=== PATIENT | male | born 1945 | race Caucasian/White ===

== ENCOUNTER 2018-08-07 06:56 | Inpatient (IN) | payer OTHER ==
[2018-07-23 12:05] VITALS: BMI 31.6
[2018-08-07] MEDS ORDERED: GABAPENTIN 300 MG CAPSULE (FP) PO ONE (07:22)
[2018-08-07] MEDS ORDERED: CEFAZOLIN 2 GM in DEXTROSE 5%-WATER - 50 ML IVPB ONE (07:22)
[2018-08-07] MEDS ORDERED: oxyCODONE HCL 10 MG SUSTAINED ACTING TABLET PO ONE (07:22)
[2018-08-07] MEDS ORDERED: TRANEXAMIC ACID 1000 MG/10 ML VIAL IVPUSH ONE (07:22)
[2018-08-07] MEDS ORDERED: CELECOXIB 200 MG CAPSULE PO ONE (07:22)
[2018-08-07] MEDS ORDERED: ceFAZolin SODIUM 1 GM VIAL ONE ×2 (07:28→09:51)
[2018-08-07] MEDS ORDERED: VANCOMYCIN 1,000 MG VIAL (RESTRICTED TO ID ONLY) ONE (07:28)
--- NOTE | 2018-08-07 07:53 | HP ---
Satellite [facility] [place] - Chief Complaint Chief Complaint: right knee pain - Past Medical History Allergies/Adverse Reactions: Allergies Allergy/AdvReac Type Severity Reaction Status Date / Time No Known Allergies Allergy Verified 07/23/18 11:57 - Current Medications Current Medications: Home Medications Medication Instructions Recorded Atorvastatin Ca [Lipitor] 40 mg PO DAILY 07/23/18 Lisinopril/Hydrochlorothiazide 1 each PO DAILY 07/23/18 [Lisinopril-Hctz 20-25 mg Tab] Satellite Physical Exam - Physical Examination Vital Signs: Vital Signs Period Temp Pulse Resp BP Sys/Martinez Pulse Ox Last 24 Hr 98.5 F 86 18 167/91 General Appearance: Well Nourished, Well Developed, Alert & Oriented x3 ENT: Clear Lung: Normal air movement Heart: Regular rate & rhythm Extremities: Other (right knee- + swelling, + ttp, decr rom, nvi xrays show grade 4 tricompartmental djd) Neurological: Intact, Alert, Oriented Satellite Impression/Plan - Impression/Plan Impression: right knee djd Operative Procedure: right aviva tkr Date to be Performed: 08/07/18
[2018-08-07] MEDS ORDERED: BUPIVACAINE LIPOSOME/PF (EXPAREL) 266 MG/20 ML VIAL ONE (08:44)
[2018-08-07] MEDS ORDERED: MIDAZOLAM HCL 2 MG/2 ML SINGLE DOSE VIAL ONE ×3 (08:44→10:17)
[2018-08-07] MEDS ORDERED: PROPOFOL 20 ML ONE (09:49)
[2018-08-07] MEDS ORDERED: MAG HYDROX/AL HYDROX/SIMETH 30 ML UNIT-DOSE CUP PO PRN (09:56)
[2018-08-07] MEDS ORDERED: MAGNESIUM HYDROX 2400MG/30ML ORAL SUSPENSION 30 ML CUP PO PRN (09:56)
[2018-08-07] MEDS ORDERED: ONDANSETRON 4 MG/2 ML VIAL IVPUSH PRN ×2 (09:56→11:39)
[2018-08-07] MEDS ORDERED: PATIENT'S OWN MEDICATION (NON-FORMULARY) (Lisinopril/Hydrochlorothiazide [Lisinopril-Hctz PO SCH (10:00)
[2018-08-07] MEDS ORDERED: LACTATED RINGERS SOLUTION 1,000 ML IV SCH ×2 (10:00→11:45)
[2018-08-07] MEDS ORDERED: TRANEXAMIC ACID 1000 MG/10 ML VIAL ONE ×2 (10:04→11:13)
[2018-08-07] MEDS ORDERED: DEXAMETHASONE SOD PHOSPHATE 4 MG/1 ML VIAL ONE (10:04)
[2018-08-07] MEDS ORDERED: VANCOMYCIN 1,000 MG VIAL (RESTRICTED TO ID ONLY) IVPB ONE (10:50)
--- NOTE | 2018-08-07 11:24 | OP ---
Operative Note - Note: Operative Date: 08/07/18 (hany) Pre-Operative Diagnosis: right knee djd Operation: right aviva tkr Post-Operative Diagnosis: Same as Pre-op Surgeon: Eduard Silva Oil Developer: Diony Gibbs Anesthesiologist/V BELT INSPECTOR: Geoffrey Snider Anesthesia: Spinal, Local Specimens Removed: bone fragments Estimated Blood Loss (mls): 200 Operative Report Dictated: Yes
[2018-08-07] MEDS ORDERED: ACETAMINOPHEN 1000 MG/100 ML VIAL (NON FORMULARY) IVPB ONE ×2 (11:39→12:10)
[2018-08-07] MEDS: ATORVASTATIN CA 40 MG TABLET (FP) PO SCH (13:57)
[2018-08-07] MEDS: SENNOSIDES/DOCUSATE COMBO (SENNA PLUS) TABLET (UD) PO SCH ×2 (13:57→22:27)
[2018-08-07] MEDS: MULTIVITAMINS (DAILY MVI) TABLET (FP) PO SCH (13:57)
[2018-08-07] MEDS: PANTOPRAZOLE 40 MG TABLET (FP) PO SCH (13:57)
[2018-08-07] MEDS: CEFAZOLIN 2 GM/D5W 2 GM/50 ML ML IVPB SCH (17:52)
[2018-08-07] MEDS: ACETAMINOPHEN 325 MG TABLET (FP) PO SCH (17:52)
--- NOTE | 2018-08-07 20:15 | OP ---
DATE OF OPERATION: 08/07/2018 PREOPERATIVE DIAGNOSIS: Degenerative joint disease, right knee. POSTOPERATIVE DIAGNOSIS: Degenerative joint disease, right knee. PROCEDURE: Right total knee replacement with robotic-assisted navigation (MAKOplasty). SURGICAL ATTENDING: Eduard Silva MD STATISTICAL PROGRAMMER ANALYST: NOEMI English ANESTHESIA: Regional and spinal. CLOSURE: A Press-Fit Triathlon knee system with a 4 femur, 5 tibia, 9 polyethylene, a 38 patella; No. 1 Vicryl, fascia; 0 and 2-0 for subcutaneous; and 3-0 Monocryl subcuticular with skin glue for skin; 4-0 undyed Vicryl for pin sites. ESTIMATED BLOOD LOSS: Less than 100 mL. COMPLICATIONS: None. CONDITION: To recovery room in stable condition. DESCRIPTION OF OPERATIVE PROCEDURE: Patient was taken to the operating room on August 07, 2018. Regional and spinal anesthesia was administered by the anesthesiologist. IV Kefzol was administered prophylactically prior to the case as well as TXA. The right lower extremity was prepped and draped in the usual sterile fashion. The midline 10- to 12-cm longitudinal incision was made. Hemostasis was achieved with Bovie cautery. Sharp dissection was carried down to the extensor mechanism which was perform the procedure. Medial parapatellar arthrotomy was then performed, leaving a cuff of tissue for later closure. The patella was inverted and the knee was flexed up. The fat pad was excised. Subperiosteal dissection was done on the anteromedial proximal tibia until the knee was able to be brought forward. This was facilitated by taking the ACL, PCL and medial and lateral menisci. Checkpoints were placed in both the femur and in the tibia. Two parallel threaded pins were drilled superior to the knee joint through the already made incision from anterior to posterior just going through the anterior cortex but just engaging but not going through the posterior cortex. Two threaded pins were drilled through 2 small stab incisions in parallel fashion 1 handbreadth below the tibial tubercle through the anterior cortex of the tibia and engaging but not going through the posterior cortex. Both sets of pins were attached to navigation arrays for the YASMINE system. The knee was then registered with the navigation system with center of rotation of the hip, medial and lateral malleoli and multiple sites both on the tibia and on the femur. Confirmation of excellent registration was confirmed by "popping the bubbles." At this time, the knee was thoroughly inspected to remove all osteophytes around the knee. The knee was then tensioned in varus/valgus at both full extension and at 90 degrees of flexion to ascertain our gaps. The virtual position of the components was optimized to ensure equal gaps throughout the range of motion. Once this was performed, the robot was brought into the field, was registered. The bone was cut as per the specifications on both the tibia and on the femur. The box cuts were then made as well. Excellent trial stability was obtained on the femur. The tibial baseplate was allowed to "find itself" and then was clipped into place. Confirmation of excellent external rotation of that component was confirmed by the navigation device as well.The patella was calibered for thickness and cut at the appropriate level. The appropriate lollipop was used to drill 3 holes in the patella and a trial asymmetric patellar button was applied. The knee was taken through a range of motion and found to have excellent stability from full extension to full flexion with excellent tracking of the patella. The trial components were then removed. The lug holes were drilled in the femur. The cementless keel was punched in the tibia. The real Press-Fit components were malleted into place, first with the tibia and then with the femur, and then the patella was crimped into place as well. The real polyethylene liner was then clipped into place. Range of motion, stability and tracking were as described earlier. The knee was thoroughly irrigated with copious amounts of irrigation. Vancomycin powder was placed inside the joint. The medial parapatellar arthrotomy was then closed using No. 1 Vicryl interrupted suture. Post closure of the arthrotomy, the knee was taken through a range of motion and found to have no undue tension on the repair. The subcutaneous was then pulse antibiotic irrigated, closed with 0 and 2-0 Vicryl and 3-0 Monocryl subcuticular with skin glue for the skin. Prior to closure, the checkpoints were removed as were the threaded pins. The tibial pin sites were closed with 4-0 undyed Vicryl. A sterile pressure Aquacel dressing was applied. No tourniquet was used during the case. The total blood loss was approximately 100 mL. No complication. Patient was transferred to recovery in stable condition. Brent [id number]
[2018-08-07] MEDS: oxyCODONE HCL 10 MG SUSTAINED ACTING TABLET PO SCH (22:27)
[2018-08-07] MEDS: GABAPENTIN 300 MG CAPSULE (FP) PO SCH (22:27)
[2018-08-08] MEDS: ACETAMINOPHEN 325 MG TABLET (FP) PO SCH ×4 (00:30→17:31)
[2018-08-08] MEDS: CEFAZOLIN 2 GM/D5W 2 GM/50 ML ML IVPB SCH (02:32)
[2018-08-08] MEDS: oxyCODONE HCL 5 MG TABLET PO PRN ×3 (06:07→21:42)
[2018-08-08 07:52] LABS: HEMATOCRIT 32.1 % (35.4-49); HEMOGLOBIN 11.1 GM/dl (11.7-16.9); MCH 31.5 pg (25.7-33.7); MCHC 34.6 g/dl (32.0-35.9); MEAN CELL VOLUME 90.9 fl (80-96); MEAN PLT VOLUME 7.7 fl (7.5-11.1); PLATELET COUNT 184 K/MM3 (134-434); RBC 3.53 M/mm3 (4.00-5.60); RDW 11.6 % (11.9-15.9); WHITE BLOOD COUNT 10.3 K/mm3 (4.0-10.8)
[2018-08-08] MEDS: ASPIRIN 325 MG TABLET PO SCH (08:45)
[2018-08-08] MEDS: MULTIVITAMINS (DAILY MVI) TABLET (FP) PO SCH (10:26)
[2018-08-08] MEDS: HYDROCHLOROTHIAZIDE 25 MG TABLET (FP) PO SCH (10:26)
[2018-08-08] MEDS: ATORVASTATIN CA 40 MG TABLET (FP) PO SCH (10:26)
[2018-08-08] MEDS: LISINOPRIL 20 MG TABLET (FP) PO SCH (10:26)
--- NOTE | 2018-08-08 10:26 | PN ---
Progress Note (short form) - Note Progress Note: Ortho Pt seen and examined s/p right aviva tkr pod #1 Selected Entries 08/08/18 06:41 Temperature 97.5 F L Pulse Rate 82 Respiratory 18 Rate Blood Pressure 106/60 Laboratory Tests 08/08/18 07:00 WBC 10.3 Hgb 11.1 L Hct 32.1 L Plt Count 184 dressing c/d/i, calf soft, nt rom 0-60, nvi a/p PT dvt ppx pain control d/c home tomorrow if stable
[2018-08-08] MEDS: PANTOPRAZOLE 40 MG TABLET (FP) PO SCH (10:27)
[2018-08-08] MEDS: GABAPENTIN 300 MG CAPSULE (FP) PO SCH ×2 (10:27→21:41)
[2018-08-08] MEDS: SENNOSIDES/DOCUSATE COMBO (SENNA PLUS) TABLET (UD) PO SCH ×2 (10:27→21:41)
[2018-08-08] MEDS: oxyCODONE HCL 10 MG SUSTAINED ACTING TABLET PO SCH ×2 (10:27→21:41)
--- NOTE | 2018-08-08 14:55 | PN ---
Progress Note (short form) - Note Progress Note: POD #1 - s/p total knee replacement makoplasty. VSS. Pt. doing well, completing rehab. No complaints. Good pain control. No apparent anesthetic complications noted. Continue current care.
[2018-08-09] MEDS: ACETAMINOPHEN 325 MG TABLET (FP) PO SCH ×3 (00:14→12:22)
[2018-08-09] MEDS: oxyCODONE HCL 5 MG TABLET PO PRN ×3 (02:33→12:22)
[2018-08-09 07:32] LABS: HEMOGLOBIN 9.4 GM/dl (11.7-16.9); MCH 30.3 pg (25.7-33.7); MCHC 33.7 g/dl (32.0-35.9); MEAN CELL VOLUME 89.8 fl (80-96); MEAN PLT VOLUME 7.6 fl (7.5-11.1); PLATELET COUNT 152 K/MM3 (134-434); RBC 3.12 M/mm3 (4.00-5.60); RDW 11.8 % (11.9-15.9); WHITE BLOOD COUNT 9.3 K/mm3 (4.0-10.8)
[2018-08-09] MEDS: ASPIRIN 325 MG TABLET PO SCH (07:54)
--- NOTE | 2018-08-09 08:39 | DS ---
Physical Examination Vital Signs: Vital Signs Temperature 98.4 F 08/09/18 06:00 Pulse Rate 97 H 08/09/18 06:00 Respiratory Rate 18 08/09/18 06:00 Blood Pressure 127/55 L 08/09/18 06:00 O2 Sat by Pulse Oximetry (%) 96 08/09/18 06:00 Labs: CBC, BMP 08/09/18 07:00 Discharge Summary Reason For Visit: OSTEOARTHRITIS Procedures: Principal: right aviva tkr Hospital Course: admitted for elective right aviva tkr, uneventful post-op, stable for d/c Condition: Good - Instructions Diet, Activity, Other Instructions: Post-op Instructions-Total Knee Replacement Call the office for a follow-up appointment in 1 week - [phone] Aspirin 325mg daily for 6 weeks. Pain medication was sent into your pharmacy. Apply Graduated Compression Stockings (TEDs) to both lower extremities- remove daily for hygiene ONLY Apply Sequential Compression Device (SCDs) to both Lower extremities remove for PT and hygiene ONLY Apply cold packs to affected area for 15 minutes every 2 hours. Physical Therapist will come to your home for the first 5 days. You will be set up with outpatient PT at your first post-operative visit. Patient may ambulate as tolerated-encourage self care (at least every 2-3 hours while awake) with walker or cane Maintain Aquacel (waterproof) dressing to operative wound (will be removed by surgeon at first office visit) Shower with Aquacel dressing in place-if Aquacel integrity compromised, remove and apply dry sterile dressing and notify Orthopedist. DO NOT SHOWER unless Orthopedists approves without Aquacel dressing CONTACT THE OFFICE FOR ANY CHANGE IN YOUR CONDITION (for example-fever greater than 102 degrees, excessive bleeding from operative site, purulent drainage, severe swelling or pain) GO TO THE EMERGENCY ROOM IF THERE IS A MEDICAL EMERGENCY Knee Precautions: * Keep a rolled towel under affected heel while in bed or chair (to keep knee in extension) * Keep affected leg elevated except during mealtimes * DO NOT PLACE PILLOW UNDER AFFECTED KNEE * If you have any questions, please do not hesitate to call the office - . Referrals: Eduard Silva MD [Staff Physician] - Disposition: VNS/HOME HEALTH CARE - Home Medications Comprehensive Discharge Medication List: Ambulatory Orders Atorvastatin Ca [Lipitor] 40 mg PO DAILY 07/23/18 Lisinopril/Hydrochlorothiazide [Lisinopril-Hctz 20-25 mg Tab] 1 each PO DAILY Aspirin [ASA -] 325 mg PO DAILY@0800 tablet 08/07/18 Oxycodone HCl/Acetaminophen [Percocet 5-325 mg Tablet -] 1 - 2 tab PO Q6H #50 tab MDD 8 08/07/18 Oxycodone HCl/Acetaminophen [Percocet 5-325 mg Tablet -] 1 - 2 tab PO Q6H #60 tab MDD 8 08/08/18
--- NOTE | 2018-08-09 08:39 | PN ---
Progress Note (short form) - Note Progress Note: Ortho Pt seen and examined s/p right aviva tkr pod #2 Selected Entries 08/09/18 06:00 Temperature 98.4 F Pulse Rate 97 H Respiratory 18 Rate Blood Pressure 127/55 L Laboratory Tests 08/09/18 07:00 WBC 9.3 Hgb 9.4 L Hct 28.0 L Plt Count 152 dressing c/d/i, calf soft, nt rom 0-60, nvi a/p PT dvt ppx pain control d/c home today f/u in 1 week
[2018-08-09 08:45] VITALS: BP 114/54; PULSE 93; TEMP 98.2
[2018-08-09] MEDS: ATORVASTATIN CA 40 MG TABLET (FP) PO SCH (09:29)
[2018-08-09] MEDS: SENNOSIDES/DOCUSATE COMBO (SENNA PLUS) TABLET (UD) PO SCH (09:29)
[2018-08-09] MEDS: MULTIVITAMINS (DAILY MVI) TABLET (FP) PO SCH (09:29)
[2018-08-09] MEDS: LISINOPRIL 20 MG TABLET (FP) PO SCH (09:29)
[2018-08-09] MEDS: GABAPENTIN 300 MG CAPSULE (FP) PO SCH (09:29)
[2018-08-09] MEDS: HYDROCHLOROTHIAZIDE 25 MG TABLET (FP) PO SCH (09:29)
[2018-08-09] MEDS: oxyCODONE HCL 10 MG SUSTAINED ACTING TABLET PO SCH (09:30)
[2018-08-09] MEDS: PANTOPRAZOLE 40 MG TABLET (FP) PO SCH (09:32)
--- NOTE | 2018-08-10 17:04 | PATH ---
Surgical Pathology Report Patient Name: BARI SIBLEY Med. Rec. #: [id number] /Age/Gender: 1945 (Age: 72) / M Account: [id number] Location: [facility] Taken: 08/07/2018 Received: 08/07/2018 Reported: 08/10/2018 Physicians: Eduard Silva M.D. Specimen(s) Received BONE RIGHT KNEE Clinical History Osteoarthritis right knee Final Diagnosis BONE, RIGHT KNEE, TOTAL KNEE REPLACEMENT: DEGENERATIVE JOINT DISEASE. Electronically Signed Romi Mclain M.D. Gross Description Received in formalin labeled "bone right knee," is a 9.0 x 8.8 x 2.0 cm aggregate of multiple portions of bone and soft tissue. The tibial plateau measures 7.8 x 5.3 x 1.6 cm. There are no areas of eburnation identified. The articular surfaces are viera-brown and diffusely granular. The underlying trabecular bone is yellow and hard. Rib Trim Separator sections are submitted in one cassette, following decalcification. 08/09/2018 [facility]08/09/2018
== END 2018-08-09 13:14 | disposition home health service (06) | DRG 470 ==
LOC: FM/S 06:56
PROVIDERS: ADMIT Orthopaedic Surgery; ATTEND Orthopaedic Surgery
PROC: 8E0Y0CZ Robotic Assisted Procedure of Lower Extremity, Open Approach (ICD-10-PCS; 2018-08-07)
PROC: 0SRC0JZ Replacement of Right Knee Joint with Synthetic Substitute, Open Approach (ICD-10-PCS; principal; 2018-08-07 09:58)
DX: M17.11 Unilateral primary osteoarthritis, right knee (principal)
CPT/HCPCS: 36415; 73560-TC-RT-FY; 85027; 88304-TC; 88311-TC; 94760; 97116-GP; 97163-GP; J0131

== ENCOUNTER 2023-04-04 07:45 | Day surgery (SDC) | payer OTHER ==
[2023-03-28 11:11] VITALS: BMI 33.7
[2023-04-04] MEDS ORDERED: BUPIVACAINE LIPOSOME/PF (EXPAREL) 266 MG/20 ML VIAL ONE (08:31)
[2023-04-04] MEDS ORDERED: BUPIVACAINE HCL/PF 0.5% (5MG/ML) 10 ML VIAL ONE (08:31)
[2023-04-04] MEDS ORDERED: MIDAZOLAM HCL 2 MG/2 ML SINGLE DOSE VIAL ONE ×2 (08:31→09:56)
[2023-04-04] MEDS ORDERED: DEXAMETHASONE SOD PHOSPHATE 4 MG/1 ML VIAL ONE (09:21)
[2023-04-04] MEDS ORDERED: ONDANSETRON 4 MG/2 ML VIAL ONE (09:21)
[2023-04-04] MEDS ORDERED: TRANEXAMIC ACID 1000 MG/10 ML VIAL ONE (09:21)
[2023-04-04] MEDS ORDERED: ceFAZolin SODIUM 1 GM VIAL ONE ×2 (09:21→09:48)
[2023-04-04] MEDS ORDERED: PROPOFOL 20 ML ONE ×2 (09:26→10:05)
[2023-04-04] MEDS ORDERED: SUCCINYLCHOLINE CHLORIDE 200 MG/10 ML SYRINGE ONE (09:28)
[2023-04-04] MEDS ORDERED: VANCOMYCIN 1,000 MG VIAL (RESTRICTED TO ID ONLY) ONE ×2 (09:48→10:01)
[2023-04-04] MEDS ORDERED: CEFAZOLIN 2 GM in DEXTROSE 5%-WATER - 50 ML IVPB ONE (10:30)
[2023-04-04] MEDS ORDERED: TRANEXAMIC ACID 1000 MG/10 ML VIAL IVPUSH ONE (10:30)
[2023-04-04] MEDS ORDERED: ONDANSETRON 4 MG/2 ML VIAL IVPUSH PRN (10:57)
[2023-04-04] MEDS ORDERED: LACTATED RINGERS SOLUTION 1,000 ML IV SCH (11:00)
[2023-04-04] MEDS ORDERED: oxyCODONE HCL 5 MG TABLET PO PRN (11:17)
[2023-04-04] MEDS ORDERED: ACETAMINOPHEN 1000 MG/100 ML BAG IVPB ONE (11:17)
[2023-04-04] MEDS: KETOROLAC TROMETHAMINE 30 MG/1 ML VIAL IVPUSH SCH ×2 (11:30→17:53)
[2023-04-04] MEDS ORDERED: oxyCODONE HCL 5 MG TABLET ONE (12:21)
[2023-04-04] MEDS: CEFAZOLIN SODIUM 2 GM in DEXTROSE 5%-WATER 100 ML IVPB SCH (17:53)
[2023-04-04] MEDS: ACETAMINOPHEN 500 MG TABLET (FP) PO SCH (17:54)
[2023-04-04 18:59] VITALS: RESP 18
[2023-04-04] MEDS: SENNOSIDES/DOCUSATE COMBO (SENNA PLUS) TABLET (UD) PO SCH (21:06)
[2023-04-04] MEDS: oxyCODONE HCL 10 MG SUSTAINED ACTING TABLET PO SCH (21:07)
[2023-04-04] MEDS: oxyCODONE HCL 5 MG TABLET PO PRN (21:07)
[2023-04-05] MEDS: CEFAZOLIN SODIUM 2 GM in DEXTROSE 5%-WATER 100 ML IVPB SCH (02:00)
[2023-04-05] MEDS: oxyCODONE HCL 5 MG TABLET PO PRN ×2 (05:48→08:54)
[2023-04-05] MEDS: ACETAMINOPHEN 500 MG TABLET (FP) PO SCH ×3 (05:48→12:11)
[2023-04-05 07:48] LABS: HEMATOCRIT 34.1 % (35.4-49); HEMOGLOBIN 11.7 G/dL (11.7-16.9); MCH 31.5 pg (25.7-33.7); MCHC 34.3 g/dl (32.0-35.9); MEAN CELL VOLUME 91.9 fl (80-96); PLATELET COUNT 211.4 10^3/uL (134-434); RBC 3.71 10^6/uL (4.00-5.60)
[2023-04-05] MEDS ORDERED: ASPIRIN 325 MG TABLET PO SCH (08:00)
[2023-04-05 09:29] VITALS: TEMP 98.1
[2023-04-05] MEDS ORDERED: HYDROCHLOROTHIAZIDE 25 MG TABLET (FP) PO SCH (10:00)
[2023-04-05] MEDS ORDERED: MULTIVITAMINS (DAILY MVI) TABLET (FP) PO SCH (10:00)
[2023-04-05] MEDS ORDERED: PANTOPRAZOLE 40 MG TABLET PO SCH (10:00)
[2023-04-05] MEDS ORDERED: ATORVASTATIN CA 40 MG TABLET (FP) PO SCH (10:00)
[2023-04-05] MEDS ORDERED: LISINOPRIL 20 MG TABLET PO SCH (10:00)
[2023-04-05] MEDS ORDERED: PATIENT'S OWN MEDICATION (NON-FORMULARY) (Lisinopril/Hydrochlorothiazide [Lisinopril-Hctz PO SCH (10:00)
[2023-04-05] MEDS ORDERED: amLODIPine BESYLATE 5 MG TABLET (FP) PO SCH (10:00)
[2023-04-05] MEDS: SENNOSIDES/DOCUSATE COMBO (SENNA PLUS) TABLET (UD) PO SCH (10:34)
[2023-04-05] MEDS: oxyCODONE HCL 10 MG SUSTAINED ACTING TABLET PO SCH (10:35)
[2023-04-05 14:39] VITALS: BP 120/72; PULSE 78
== END 2023-04-05 14:37 | disposition home health service (06) ==
LOC: FASUSAT 07:45 → FM/S 12:32 → FASUSAT 04-05 14:37
PROVIDERS: ATTEND Orthopaedic Surgery
PROC: 8E0Y0CZ Robotic Assisted Procedure of Lower Extremity, Open Approach (ICD-10-PCS; 2023-04-04)
PROC: 0SRD0JA Replacement of Left Knee Joint with Synthetic Substitute, Uncemented, Open Approach (ICD-10-PCS; principal; 2023-04-04 09:31)
DX: M17.12 Unilateral primary osteoarthritis, left knee (principal)
CPT/HCPCS: 20985; 27447; C1776; S2900; 36415; 73560-TC-LT-FY; 85027; 94760; 97010-GP; 97116-GP; 97162-GP